=== PATIENT | female | born 1980 | race Asian ===

== ENCOUNTER → 2022-10-21 | Outpatient (CLI) | payer OTHER ==
[2022-10-22 04:06] LABS: RUBELLA AB IGG-REFLAB 1.62 index (Immune >0.99)
[2022-10-22 05:08] LABS: MUMPS VIRUS IGG ANTIBODY <9.0 AU/mL (Immune >10.9)
== END | disposition home or self-care (01) ==
LOC: LABMN 15:12
PROVIDERS: ATTEND Internal Medicine
DX: Z02.1 Encounter for pre-employment examination (principal)
CPT/HCPCS: 86706; 86735; 86762; 86765; 86787